=== PATIENT | female | born 1965 | race Caucasian/White ===

== ENCOUNTER 2017-11-02 15:23 | Emergency (ER) | payer OTHER ==
[~2017-11-02] VITALS: Ht 162.6 cm; Wt 100.9 kg
[2017-11-02 15:42] VITALS: TEMP 36.5; Ht 162.6 cm; Wt 100.9 kg
[2017-11-02] MEDS ORDERED: LEVO75TA PO (16:34)
[2017-11-02] MEDS ORDERED: CLB/200 PO (16:34)
[2017-11-02] MEDS ORDERED: MULT-506 PO (16:34)
[2017-11-02] MEDS ORDERED: ESCI1TAB10 PO (16:34)
[2017-11-02] MEDS ORDERED: CLON0.5T3 PO (16:34)
[2017-11-02] MEDS ORDERED: DULO60CA44 PO (16:34)
[2017-11-02] MEDS ORDERED: GABA-112 PO (16:34)
[2017-11-02] MEDS ORDERED: METH-307 PO (16:34)
[2017-11-02] MEDS ORDERED: ESTR10TA3 PV (16:34)
[2017-11-02] MEDS ORDERED: PRLSR20 PO (16:34)
[2017-11-02] MEDS ORDERED: OXYC-57 PO (16:34)
[2017-11-02] MEDS ORDERED: GLUCTAB7 PO (16:34)
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
[2017-11-02 16:57] LABS: ISTAT CREATININE 0.8 mg/dl (0.6-1.3); ISTAT IONIZED CALCIUM 1.19 mmol/l (1.12-1.32); ISTAT POTASSIUM 3.8 mEq/L (3.3-5.0)
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
[2017-11-02] MEDS ORDERED: OPTIRAY 320 IV PRN (18:00)
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
[2017-11-02 18:17] VITALS: BP 116/70; PULSE 75; O2SAT 98
== END 2017-11-02 18:45 | disposition home or self-care (01) ==
LOC: EDBD 15:23 → C.EDB 15:27
DX: M79.641 Pain in right hand (principal); M25.522 Pain in left elbow; M25.562 Pain in left knee; V43.52XA Car driver injured in collision with other type car in traffic accident, initial encounter; Y92.488 Other paved roadways as the place of occurrence of the external cause; S60.222A Contusion of left hand, initial encounter